=== PATIENT | male | born 2000 | race Caucasian/White ===

== ENCOUNTER 2022-02-10 14:37 | Emergency (ER) | payer OTHER ==
[2022-02-10] MEDS ORDERED: Sodium Chloride 0.9% 10 ML Syringe FLUSH PRN (16:09)
[2022-02-10] MEDS: Ondansetron 4 MG/2 ML SDV IVPUSH ONE ×2 (16:34→17:17)
[2022-02-10] MEDS: Sodium Chloride 0.9% 1,000 ML IV ONE (16:34)
[2022-02-10 16:52] LABS: CHLORIDE,CL 103 mmol/L (98-107); SODIUM,NA 140 mmol/L (136-145)
[2022-02-10] MEDS: Take Home: Ondansetron 4 MG Tab.DIS, 5 Tab Pack PO ONE (17:17)
== END 2022-02-10 17:18 | disposition home or self-care (01) ==
LOC: VM.ED 14:37
DX: F10.10 Alcohol abuse, uncomplicated (principal); R11.2 Nausea with vomiting, unspecified
CPT/HCPCS: 36415; 80053; 83690; 85025; 96374; 96376; 99283; 99284-25; J2405; J7030; Q0162